=== PATIENT | female | born 1985 | race Two or more races ===

== ENCOUNTER 2024-10-23 08:46 | Emergency (ER) | payer MEDICAID, SELFPAY ==
[2024-10-23 08:47] VITALS: BMI 35.7
[2024-10-23 08:56] VITALS: BP 152/91; PULSE 78; RESP 16; TEMP 36.9; O2SAT 99
--- NOTE | 2024-10-23 08:56 | PD.EDRME ---
Rapid Medical Screening Exam [facility] Arrival date/time: 10/23/24 08:46 39 year old female present to emergency room with c/o of right groin pain for 1 week. 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 LOCATION: groin SEVERITY: Symptoms are described as being severe with limitations on activities of daily living QUALITY: Symptoms are described as being cramping CONTEXT: The patient is unable to identify any inciting events. DURATION/TIMING: The symptoms started approximately 7 day ago and have been waxing/waning but always present without ever completely resolving. ASSOCIATED SYMPTOMS: The patient is unable to identify any other associated symptoms. MODIFYING FACTORS: The patient is unable to identify any alleviating or aggravating symptoms. PERTINENT ROS: no fevers, no anorexia, no nausea or vomiting, no diarrhea, no ripping or tearing sensations, no syncope or presyncopal symptoms, denies trauma, denies genital pain denies any dysuria, urgency, frequency, vag bleeding/discharge REVIEW OF SYSTEMS: See History of Present Illness - with the exception of those mentioned in the history of present illness, all other systems reviewed and reported as negative GENERAL: In general the patient is awake, interactive, in an emergency department gurney. HEAD/EYES/EARS/NOSE/THROAT: normo-cephalic, atraumatic, mucus membranes are moist, anicteric, palpebral conjunctiva is pink, trachea is midline. CARDIOVASCULAR: regular rate and regular rhythm, no murmurs, heart sounds are not distant, strong pulses in all four extremities that are equal and symmetric bilateral upper and lower extremities, normal capillary refill. CHEST/PULMONARY: normal chest rise and fall, good air movement, clear to auscultation bilaterally, normal inspiratory to expiratory ratios without evidence of respiratory distress. NECK: No midline/Paraspinal tenderness, no step off ROM/Strenght intact No Kernig and bruzinski sign. No trauma ABDOMEN: soft, right groin tenderness , no masses appreciated BACK: normal range of motion without pain. NEUROLOGICAL: cranio-facial features are symmetric, moves all four extremities equally without obvious limitations or weakness. EXTREMITY: no tenderness to palpation over the long bones or large joints of the bilateral upper and lower extremities, no joint swelling, no joint erythema, no signs of trauma, no unilateral leg swelling and no peripheral edema. SKIN: warm, dry, well-perfused, no jaundice, no rash, no telangiectasias or petechia. PSYCH: calm, cooperative, no evidence of psychosis or agitation Time Seen by Provider: 10/23/24 08:57 Vital signs: Vital Signs Temperature 98.4 F 10/23/24 08:56 Pulse Rate 78 10/23/24 08:56 Respiratory Rate 16 10/23/24 08:56 Blood Pressure 152/91 H 10/23/24 08:56 Pulse Oximetry (%) 99 10/23/24 08:56 Oxygen Delivery Method Room Air 10/23/24 08:56
--- NOTE | 2024-10-23 08:58 | XR_ITS ---
Examination: Pelvic ultrasound, transabdominal, complete Technique: Transabdominal ultrasound of the pelvis performed using grayscale imaging Date and time of exam: October 24, 2019 5:10 AM Indications: Right groin pain pelvic pain beginning one week ago, worse today Findings: Uterus 10.5 cm endometrial stripe 0.2 cm Intrauterine fundal area of fibroid degeneration 10 x 11 mm Right ovary 3.5 cm arterial flow 22 mm cyst Left ovary 2.4 cm arterial flow Impression: Uterine fundal area of fibroid degeneration 10 x 10 x 11 mm
--- NOTE | 2024-10-23 08:58 | XR_ITS ---
Examination:Ready hip AP, lateral, AP pelvis 3 views Technique: Hip AP lateral, AP pelvis, 3 views Exam date and time:October 23, 2024 at 0903 hrs. Indications: Right groin and hip pain beginning one week ago Findings: Mild osteopenia Moderate narrowing hip joints No right or left hip fracture or dislocation No avascular necrosis Impression: Moderate narrowing hip joints.
[2024-10-23] MEDS: KETOROLAC INJ 60 MG/2 ML VIAL 30 MG IM (09:02)
[2024-10-23 09:33] LABS: Collection Type, Urine Voided
[2024-10-23 09:42] LABS: Bilirubin,Urine Negative (Negative); Blood,Urine 1+ (Negative); Clarity,Urine Clear (Clear/Hazy); Color,Urine Yellow (Lt Yel-Yel); Glucose, Urine Negative (Negative); Ketones,Urine Negative (Negative); Leukocyte Esterase,Urine Negative (Negative); Nitrite,Urine Negative (Negative); PH,Urine 6.5 (5.0-7.0); Protein,Urine 1+ (Neg - Trace); RBC,Urine 2 /hpf (0-3); Specific Gravity,Urine 1.039 (1.001-1.035); Squamous Epithelial Cell,Urine 8 /hpf (0-5); WBC,Urine 2 /hpf (0-5)
[2024-10-23 09:46] LABS: HCG Qualitative,Urine Negative
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
[2024-10-23 12:25] LABS: Chlamydia trachomatis PCR Negative (Not Detect); Neisseria Gonorrhoeae DNA PCR Negative (Not Detect); Trichomonas Negative (Negative)
== END 2024-10-23 11:43 | disposition home or self-care (01) ==
PROVIDERS: Physician Assistant; Emergency Provider Emergency Medicine; PCP Nurse Practitioner Family
DX: D25.9 Leiomyoma of uterus, unspecified (principal)
CPT/HCPCS: 73502; 76856; 81001; 81025; 87491; 87591; 87661; 96372; 99284; J1885

== ENCOUNTER → 2025-03-10 | Outpatient (CLI) | payer OTHER, SELFPAY ==
--- NOTE | 2025-03-10 14:45 | XR_ITS ---
Examination: Left knee 2 views Technique one AP lateral left knee 2 views Date and time: March 10, 2025 1451 hours INDICATIONS: Stabbing pain involving the left knee beginning 5 days ago. FINDINGS: Mild to moderate tricompartment osteoarthritis, most severe medial joint space No fracture Small knee effusion IMPRESSION: Mild to moderate tricompartment osteoarthritis
== END | disposition home or self-care (01) ==
PROVIDERS: PCP Physician Assistant; Referring Provider Physician Assistant; Visit Provider Physician Assistant
DX: M17.12 Unilateral primary osteoarthritis, left knee (principal)
CPT/HCPCS: 73560

== ENCOUNTER 2025-05-12 19:39 | Emergency (ER) | payer MEDICAID, SELFPAY ==
[2025-05-12 19:41] VITALS: BMI 34.0
[2025-05-12 19:45] VITALS: BP 132/84; PULSE 119; RESP 19; TEMP 36.8; O2SAT 97
--- NOTE | 2025-05-12 20:08 | EDNOTE_ITS ---
Upper Respiratory Inf. RME/HPI General Chief Complaint: Flu Like Symptoms Stated Complaint: SORE THROAT,COUGH,BODYACHES Time Seen by Provider: 05/12/25 20:05 Arrival date/time: 05/12/25 19:39 40F with no significant PMH presents to ED with several days of cough, sore throat, ear pain, and body aches. Limitations: no limitations Related Data Previous Rx's ?Medication ?Instructions ?Recorded ibuprofen 600 mg tablet 600 mg PO TID PRN pain #30 t abs 12/18/21 cyclobenzaprine 10 mg tablet 10 mg PO BID PRN muscle s pasm #20 10/23/24 tabs naproxen 500 mg tablet 500 mg PO BID PRN pain #20 t abs 10/23/24 Allergies Allergy/AdvReac Type Severity Reaction Status Date / Time No Known Allergies Allergy Unknown Verified 12/18/21 19:17 Review of Systems Review of Systems Systems Reviewed: All systems reviewed, normal except as documented Constitutional Constitutional: Reports as per HPI, Reports chills, Reports fatigue and Reports fever(s) ENT Ears, Nose, Mouth, and Throat: Reports as per HPI, Reports otalgia and Reports sore throat Respiratory Respiratory: Reports as per HPI and Reports cough Endocrine Endocrine: Reports fatigue Past Medical History Social History SMOKING STATUS: Never smoker ED Exam General Limitations: Present no limitations General appearance: Present alert and in no apparent distress Head Head exam: Present atraumatic ENT ENT exam: Present normal exam, normal oropharynx and mucous membranes moist Neck Neck exam: Present normal inspection, full ROM and trachea midline Chest Chest inspection: Present normal inspection and symmetric chest wall rise Respiratory Respiratory exam: Present normal lung sounds bilaterally Extremities Exam Extremities exam: Present normal inspection and full ROM Neurological Exam Neurological exam: Present alert and oriented X3 Psychiatric Psychiatric exam: Present normal affect and normal mood Skin Skin exam: Present warm, dry, intact and normal color Course Quality Measures none Orders Category Date Time Status Bedside COVID-19 Antigen Test NOW Care 05/12/25 19:46 Active Bedside Influenza A&B Antigen Test NOW Care 05/12/25 19:47 Active Naproxen [Naprosyn] Med 05/12/25 20:07 Once 500 mg PO X1 ONE Vital Signs Vital signs: Vital Signs Temperature 98.3 F 05/12/25 19:45 Pulse Rate 119 H 05/12/25 19:45 Respiratory Rate 19 05/12/25 19:45 Blood Pressure 132/84 H 05/12/25 19:45 Pulse Oximetry (%) 97 05/12/25 19:45 Oxygen Delivery Method Room Air 05/12/25 19:45 O2 at 97% on RA and WNLs Upper Respiratory Infection MDM Narrative MDM Narrative:: 40F with no significant PMH presents to ED with several days of cough, sore throat, ear pain, and body aches. Physical exam reveals clear ENT and lungs. Normal WOB. Patient is afebrile, calm, and alert. COVID+. Patient data External records reviewed:: [facility] previous records Clinical information provided by:: patient Social determinants that could affect healthcare access:: none Patient has the following chronic illnesses:: none How is presenting disease/condition affected by chronic disease/condition?: no chronic disease Evaluation data The following diagnostics were reviewed and interpreted by me:: lab results Lab and/or radiology exams considered but not ordered:: ordered Interpretation Summary: above Medications / Prescriptions Medications or Prescriptions considered but not ordered:: ordered Medication administrations:: Medication Administration History Discontinued Medications Naproxen (Naproxen 250 Mg Tablet) 500 mg PO X1 ONE Stop: 05/12/25 20:08 above Consultations Consultation(s) initiated? (list below): No Diagnosis Upper Respiratory Differential Diagnosis: upper respiratory infection, croup, otitis media, sinusitis, viral infection, bronchitis, influenza and pharyngitis Most likely diagnosis given after review of the tests above:: COVID Admission Indicated Admission indicated?: not indicated Admission Request Was there a request for admission?: No Disposition Plan Disposition Plan: Discharge Discharge Attestation Discharge Attestation: The patient and all family members were given an opportunity to ask questions and understood the discharge instructions. Discharge instructions specifically effects, indications for sooner follow up or return to the emergency department, and the expected course of current diagnosis. Patient condition: Stable Discharge Plan Plan Patient Disposition: HOME (Self Care) Discharge Disposition comment: Stable Prescriptions/Referrals Prescriptions/Med Rec: No Action ibuprofen 600 mg tablet 600 mg PO TID PRN (Reason: pain) Qty: 30 0RF naproxen 500 mg tablet 500 mg PO BID PRN (Reason: pain) Qty: 20 0RF cyclobenzaprine 10 mg tablet 10 mg PO BID PRN (Reason: muscle spasm) Qty: 20 0RF Problem List Clinical Impression: COVID-19 Patient/Caregiver Discharge Instructions Education Materials: COVID-19 Home Care Additional Instructions: Please follow-up with PCP within 24-48 hours and return immediately if symptoms worsen. Ibuprofen/Tylenol can be used simultaneously for greater fever/pain control. Benadryl is good for cough, congestion, and sleep. Print Language: Peruvian Stand Alone Forms: Patient Portal Info Letter PA/WATCH REPAIRER Supervising Physician PA/WATCH REPAIRER Supervising Physician: Dr. Ford
[2025-05-12] MEDS: NAPROXEN 250 MG TABLET 500 MG PO (20:12)
== END 2025-05-12 20:24 | disposition home or self-care (01) ==
PROVIDERS: Emergency Provider Emergency Medicine
DX: U07.1 COVID-19 (principal)
CPT/HCPCS: 99283; A9270

== ENCOUNTER 2025-06-07 16:44 | Emergency (ER) | payer MEDICAID, SELFPAY ==
--- NOTE | 2025-06-07 16:59 | PC.NURSE ---
pt did not answer.
[2025-06-07 17:01] VITALS: BP 173/113; BP 174/108; PULSE 105; RESP 20; TEMP 37.1; O2SAT 98
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
[2025-06-07 22:10] VITALS: BP 156/97; PULSE 90; RESP 20; O2SAT 97
[2025-06-07] MEDS: KETOROLAC INJ 30 MG/ML VIAL IM (22:24)
[2025-06-07] MEDS: ONDANSETRON ODT 4 MG TABRAP PO (22:24)
== END 2025-06-07 22:35 | disposition home or self-care (01) ==
PROVIDERS: Emergency Provider Emergency Medicine; PCP Nurse Practitioner Family
DX: T76.21XA Adult sexual abuse, suspected, initial encounter (principal)
CPT/HCPCS: 96372; 99283; J1885; Q0162